=== PATIENT | male | born 1990 | race Caucasian/White ===

== ENCOUNTER 2021-01-02 14:42 | Emergency (ER) | payer MEDICAID ==
[~2021-01-02] VITALS: Ht 182.9 cm; Wt 143.6 kg
[2021-01-02 15:21] VITALS: BP 135/97
== END 2021-01-02 16:02 | disposition home or self-care (01) ==
LOC: ER 14:43
DX: R05 Cough (principal); Z20.822 Contact with and (suspected) exposure to COVID-19; R09.81 Nasal congestion; R11.10 Vomiting, unspecified; Z85.9 Personal history of malignant neoplasm, unspecified; Z88.0 Allergy status to penicillin
CPT/HCPCS: 99282